=== PATIENT | female | born 1995 | race Caucasian/White ===

== ENCOUNTER → 2019-07-12 12:01 | Outpatient (CLI) | payer MEDICAID, SELFPAY ==
[2019-07-12 14:40] LABS: Hematocrit 42.3 % (37-47); Hemoglobin 13.8 g/dL (12.0-15.0); Mean Corp Hgb Conc 32.6 g/dL (32-36); Mean Corpuscular Hgb 31.3 pg (27.0-32.0); Mean Corpuscular Volume 95.9 fL (81-99); Mean Platelet Vol. 11.1 fl (6.2-12.0); Platelet Count 182 K/mm3 (150-450); RBC Distribution Width CV 12.3 % (11.6-14.6); RBC Distribution Width SD 43.1 fl (35.1-43.9); Red Blood Count 4.41 M/mm3 (4.2-5.4); White Blood Count 7.5 K/mm3 (4.4-11.0)
[2019-07-12 14:56] LABS: Thyroid Stim Hormone (TSH) 0.98 uIU/mL (0.358-3.74)
[2019-07-18 04:10] LABS: Gonococcus By Nucleic Acid AMP Positive (Negative)
[2019-07-18 05:06] LABS: HPV HIGH RISK 16/18 Positive (Negative); Trich. Vag By Nucleic Acid AMP Negative (Negative)
[2019-07-18 11:58] LABS: HPV Reflexed? YES, CHARGE PATIENT
[2019-07-18 11:59] LABS: Chlamydia By Nucleic Acid AMP Negative
== END ==
PROVIDERS: Referring Provider Obstetrics & Gynecology; Visit Provider Obstetrics & Gynecology
DX: Z12.4 Encounter for screening for malignant neoplasm of cervix (principal); Z11.3 Encounter for screening for infections with a predominantly sexual mode of transmission; N92.6 Irregular menstruation, unspecified
CPT/HCPCS: 36415; 84443; 85027; 87491; 87591; 87624; 88175; G0145

== ENCOUNTER → 2019-08-02 | Outpatient (CLI) | payer MEDICAID, SELFPAY ==
[2019-08-02 17:01] LABS: Chlamydia Trachomatis by PCR Negative (Negative); Neisserai gonorrhoeae by PCR Negative (Negative); Probe Check PASS; Sample Adequacy Control PASS; Specimen Processing Control PASS
== END | disposition home or self-care (01) ==
LOC: LABSPEC 13:16
PROVIDERS: Visit Provider Obstetrics & Gynecology
DX: Z86.19 Personal history of other infectious and parasitic diseases (principal)
CPT/HCPCS: 87491; 87591

== ENCOUNTER → 2019-08-20 17:21 | Outpatient (CLI) | payer MEDICAID, SELFPAY ==
[2019-08-21 09:56] LABS: Progesterone Level 8.84 ng/mL (See Comment)
== END ==
PROVIDERS: Referring Provider Obstetrics & Gynecology; Visit Provider Obstetrics & Gynecology
DX: N97.0 Female infertility associated with anovulation (principal)
CPT/HCPCS: 84144

== ENCOUNTER 2019-08-30 11:55 | Emergency (ER) | payer MEDICAID, SELFPAY ==
[2019-08-30 11:56] VITALS: BP 116/70; PULSE 97; RESP 18; TEMP 36.8; O2SAT 95; BMI 25.2
--- NOTE | 2019-08-30 12:07 | RAD_ITS ---
STUDY: X-RAY - RIGHT FOOT CLINICAL: Female, 23 years old. Pt states twisted with constant pain TECHNIQUE: 3 view(s) of the foot. COMPARISON: None. FINDINGS: Normal talus, calcaneus, and tarsal bones. Normal visualized subtalar, talonavicular, calcaneocuboid, tarsal and tarsometatarsal articulations. Normal metatarsi. Normal metatarsophalangeal joint of the great toe. There is a bipartite tibial sesamoid. Normal interphalangeal joint of the great toe. Normal phalanges of the great toe. Normal second through fifth metatarsophalangeal joints. Normal interphalangeal joints and phalanges of the lesser toes. The soft tissue structures are unremarkable. RAD/Foot min 3 Views IMPRESSION: Normal x-ray examination of the foot. Electronically Signed: Sarabjit Kelley, at 12:36 EDT , Service support ,
--- NOTE | 2019-08-30 12:09 | ED.DCSUM_ITS ---
History of Present Illness Chief Complaint: Fall Informant: Patient Narrative: 23-year-old female with no past medical history presents with concern for right ankle pain. States that she had an inversion injury 2 days ago while stepping off of a step. Patient denies any head trauma or loss of consciousness. Her ankle is caused sharp pain with movement since that time. No relieving factors. Denies any numbness or tingling. Past Medical History - Allergies and Home Meds Allergies/Adverse Reactions: Allergies No Known Allergies Allergy (Verified 08/30/19 11:58) Primary Care Physician: Care Physician,No Primary [Primary Care Provider] - Prior records reviewed: Yes Past Medical History: None Surgical History: no surgical history Lives: Alone Smoking Status: Current every day smoker Alcohol: None Drugs: None Review of Systems General: Denies: Chills, Fever, Sweats Eyes: Denies: Visual changes - bilaterally, Diplopia ENT: Denies: Rhinorrhea, Sore throat Cardiovascular: Denies: Chest pain, Palpitations Respiratory: Denies: Dyspnea, Cough, Dyspnea on exertion Gastrointestinal: Denies: Abdominal pain, Nausea, Vomiting, Diarrhea, Melena, Hematochezia Genitourinary: Denies: Dysuria, Hematuria, Frequency Musculoskeletal: Reports: Arthralgias. Denies: Back pain, Extremity Pain Skin: Denies: Rash, Wounds Neurological: Denies: Headache, Weakness, Numbness Physical Exam Vital Signs/Narrative: Vital Signs Temp Pulse Resp BP Pulse Ox 08/30/19 11:56 98.2 F 97 18 116/70 95 General: Well nourished, Well developed, No Acute Distress Head: Normocephalic, Atraumatic Eyes: Perrl, EOMI ENT: Moist mucous membranes, No rhinorrhea Neck: Supple, Nontender Cardiovascular: Regular rate, Regular rhythm, No murmurs Respiratory: No distress, CTA bilaterally, Chest nontender Abdomen: Soft, Nontender, Nondistended, Normal bowel sounds Back: Nontender, Normal Inspection Extremities: No edema, - - TTP of the right lateral malleolus. No overying skin changes. Full ROM. Strong and palpable DP and PT pulses. Sensation intact. Skin: Normal color, No rash Neurological: Alert, Oriented x3, Cranial nerves II-XII grossly intact, Normal Strength, Normal Sensation Psychological: Normal affect, Normal Mood Diagnostic/Tx/Re-eval Clinical Impression(s) from Imaging Studies Foot X-Ray 08/30/19 12:07 IMPRESSION: Normal x-ray examination of the foot. Electronically Signed: Sarabjit Kelley, at 12:36 EDT , Service support , Ankle X-Ray 08/30/19 12:12 IMPRESSION: Normal x-ray examination of the ankle. Electronically Signed: Sarabjit Kelley, at 12:36 EDT , Service support , - Medical Decision Making Inversion injury. No head trauma. X-rays negative. Patient will have Ha wrap put in place. Given naproxen in the emergency department and for home. Patient has crutches at home she can use intermittently as needed. Patient was advised on rest, ice, compression, elevation. Asked to follow-up with primary care. Discharged home in stable condition. ED Disposition - Plan for ED Patient: Disposition: Home or Assisted Living Diagnosis: Ankle sprain Instructions: ED Sprain Ankle Prescriptions: Naproxen 500 mg PO BID PRN PRN #10 tab PRN Reason: Pain Score 1-10/10 Transmission Status: Pending to [id number] Referrals: Care Physician,No Primary [Primary Care Provider] -
--- NOTE | 2019-08-30 12:12 | RAD_ITS ---
STUDY: X-RAY - RIGHT ANKLE REASON FOR EXAM: Female, 23 years old. Pt states twisted with constant pain TECHNIQUE: 3 view(s) of the ankle. COMPARISON: None. FINDINGS: Normal visualized distal tibia and fibula. Normal medial and lateral malleoli. Normal tibiotalar articulation and ankle mortise. Normal visualized talus and calcaneus. The visualized subtalar, talonavicular, calcaneocuboid and tarsal articulations are normal. The soft tissue structures are unremarkable. RAD/Ankle min 3 Views IMPRESSION: Normal x-ray examination of the ankle. Electronically Signed: Sarabjit Kelley, at 12:36 EDT , Service support ,
[2019-08-30] MEDS: Naproxen 500 MG Tablet PO (12:56)
--- NOTE | 2019-08-30 12:57 | ED.VISSUMM ---
- ER Visit Summary Date of Service: 08/30/19 Please see note which was completed in the emergency department. Patient was stable at time of discharge and was sent home with an Ha wrap as well as anti-inflammatories. Asked to follow-up with her primary care physician. ED Disposition - Plan for ED Patient: Disposition: Home or Assisted Living Diagnosis: Ankle sprain Instructions: ED Sprain Ankle Prescriptions: Naproxen 500 mg PO BID PRN PRN #10 tab PRN Reason: Pain Score 1-12/07 Transmission Status: Received by [facility] Referrals: Ranjeet Wright DO [NON CLINICAL AFFILIATE] -
[2019-08-30 13:18] VITALS: PULSE 84; RESP 14; O2SAT 97
== END 2019-08-30 13:19 | disposition home or self-care (01) ==
PROVIDERS: Emergency Provider Emergency Medicine
DX: S93.401A Sprain of unspecified ligament of right ankle, initial encounter (principal); X50.1XXA Overexertion from prolonged static or awkward postures, initial encounter; Y93.01 Activity, walking, marching and hiking; Y92.9 Unspecified place or not applicable; F17.200 Nicotine dependence, unspecified, uncomplicated
CPT/HCPCS: 73610; 73630; 99283